=== PATIENT | male | born 2005 | race Caucasian/White ===

== ENCOUNTER 2024-10-05 12:39 | Outpatient (CLI) | payer BC, SELFPAY ==
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
== END 2024-10-05 12:40 | disposition home or self-care (01) ==
LOC: RAD 12:41
PROVIDERS: Visit Provider Emergency Medicine
DX: S09.92XA Unspecified injury of nose, initial encounter (principal); R07.9 Chest pain, unspecified; V89.2XXA Person injured in unspecified motor-vehicle accident, traffic, initial encounter
CPT/HCPCS: 70160; 71101